=== PATIENT | male | born 1970 | race Caucasian/White ===

== ENCOUNTER 2020-05-26 | Emergency (ER) | payer BC ==
[~2020-05-26] MED LIST: DARVOCET-N 100100 MG OR; FLEXERIL10 MG PO; LORTAB5 PO; NAPROSYN500 MG PO; NEXIUM40 M1 OR; NO; ROBITUSSIN AC10 ML PO; TAM75CAP PO; ULTRAM ER300 MG OR; ULTRAM ER300 MG PO; ZOFRAN ODT4 MG OR
[2020-05-26 08:20] LABS: URINE BILIRUBIN - DIPSTICK NEGATIVE (NEGATIVE); URINE BLOOD DIPSTICK LARGE (NEGATIVE); URINE COLOR YELLOW; URINE GLUCOSE - DIPSTICK NEGATIVE (NEGATIVE); URINE KETONE NEGATIVE (NEGATIVE); URINE LEUK ESTERASE NEGATIVE (NEGATIVE); URINE PROTEIN - DIPSTICK NEGATIVE (NEG-TRACE); URINE SPECIFIC GRAVITY >=1.030; URINE UROBILINOGEN - DIPSTICK 0.2 E.U./dL (0.2)
[2020-05-26 08:22] LABS: URINE NITRITE - DIPSTICK NEGATIVE (Negative)
[2020-05-26 08:32] LABS: URINE RBC 25-50 RBC/hpf (0-5)
[2020-05-26 08:33] LABS: URINE WBC 0-2 WBC/hpf (0-5)
[2020-05-26] MEDS ORDERED: ZOFRAN4 M1 PO (08:51)
== END 2020-05-26 08:58 | disposition home or self-care (01) | DRG 179 ==
PROVIDERS: Family Medicine
DX: U07.1 COVID-19 (principal); R31.9 Hematuria, unspecified; F17.210 Nicotine dependence, cigarettes, uncomplicated

== ENCOUNTER 2024-03-19 05:34 | Emergency (ER) | payer SELFPAY ==
[~2024-03-19] VITALS: Ht 167.6 cm; Wt 79.0 kg
[~2024-03-19 05:34] MED LIST changes: +ZOFRAN4 M1 PO
[2024-03-19 05:49] VITALS: BP 138/81
[2024-03-19 06:00] VITALS: BP 156/83
[2024-03-19] MEDS ORDERED: ACETAMINOPHEN 500 MG TAB PO ONE (06:25)
[2024-03-19] MEDS ORDERED: TAM75CAP PO (06:58)
[2024-03-19 07:00] VITALS: BP 162/79
[2024-03-19 07:08] VITALS: BP 162/79
== END 2024-03-19 07:23 | disposition home or self-care (01) | DRG 195 ==
LOC: ED 05:34
DX: J10.1 Influenza due to other identified influenza virus with other respiratory manifestations (principal); F17.200 Nicotine dependence, unspecified, uncomplicated; Z20.822 Contact with and (suspected) exposure to COVID-19

== ENCOUNTER 2024-03-24 16:52 | Observation (INO) | payer SELFPAY ==
[~2024-03-24] VITALS: Ht 167.6 cm; Wt 83.4 kg
[2024-03-24] VITALS (21 sets, daily range): BP systolic 125–150; BP diastolic 65–119
[2024-03-24] MEDS ORDERED: predniSONE 20 MG/TAB PO ONE (17:05)
[2024-03-24] MEDS ORDERED: IPRATROPIUM-Albuterol 0.5MG-2.5MG/3 ML NEB ONE ×2 (17:05)
--- NOTE | 2024-03-24 17:05 | NUR ---
PATIENT TO ROOM 15 WITH TRIAGE NURSE
[2024-03-24 17:29] LABS: BASO% 0.3 % (0-3); EOS% 1.7 % (0-8); HEMATOCRIT 42.5 % (39.0-50.0); HEMOGLOBIN 14.2 g/dl (14.0-18.0); IMMATURE GRANULOCYTES 0.3 % (0.0-5.0); LYMPH% 14.2 % (15-41); MEAN CELL VOLUME 88.2 fL CALC (80.0-100.0); MEAN CORPUSCULAR HGB 29.5 pG CALC (26.0-32.0); MEAN CORPUSCULAR HGB CONC 33.4 g/dL CAL (32.0-36.0); MONO% 9.5 % (2-13); NEUT# 5.8 thou/uL (1.82-7.42); RED BLOOD COUNT 4.82 mill/uL (4.70-6.10); RED CELL DISTRI WIDTH 11.7 % (11.5-15.5)
--- NOTE | 2024-03-24 17:42 | NUR ---
NEB Tx COMPLETED
[2024-03-24 17:47] LABS: CREATININE 0.9 mg/dL (0.7-1.3); POTASSIUM 3.9 mmol/l (3.5-5.1); TOTAL PROTEIN 5.9 g/dL (6.3-8.2)
[2024-03-24 17:48] LABS: ALBUMIN 3.4 g/dL (3.2-5.0); BILIRUBIN, TOTAL 1.2 mg/dL (0.2-1.3)
--- NOTE | 2024-03-24 17:56 | NUR ---
Reassessment of patient completed. No distress noted.
[2024-03-24] MEDS ORDERED: methylPREDNISolone SODIUM SUCC 125 MG/2 ML SDV IV ONE (18:30)
[2024-03-24] MEDS ORDERED: AZITHROMYCIN 500 MG in SODIUM CHLORIDE 0.9% 500 ML IV ONE (18:30)
[2024-03-24] MEDS ORDERED: cefTRIAXone SODIUM 2 GM in SODIUM CHLORIDE 0.9% 100 ML IV ONE (18:30)
--- NOTE | 2024-03-24 19:00 | NUR ---
RECIEVED REPORT FROM NALLELY CARNEY. PT AWAITING FOR ADMISSION AT THIS TIME.
--- NOTE | 2024-03-24 19:09 | NUR ---
TRANSITION OF CARE REPORT TO RONDA CARNEY
--- NOTE | 2024-03-24 19:18 | NUR ---
PT MEDICATED PER MD ORDERS. PT UPDATED ON POC, AWAITING FOR ROOM ASSIGNMENT ON MS2 AT THIS TIME. PT VOICES UNDERSTANDING WITH NO FURTHER QUESTIONS. PT CALL LIGHT WITHIN REACH FAMILY AT BEDSIDE. ABX RUNNING. PT GIVEN A SNACK OF JELLOW AT THIS TIME.
--- NOTE | 2024-03-24 19:52 | NUR ---
PT UPDATED ON POC, PT WILL BE TRANSPORTED TO MS2 ROOM 268. PT VOICES UNDERSTADNING AND APPRECIATION OF CARE.
--- NOTE | 2024-03-24 20:16 | NUR ---
PT AWAITING FOR ADMISSION ORDERS AT THIS TIME.
--- NOTE | 2024-03-24 21:18 | NUR ---
GAVE PT REPORT TO SHEA ROMAN.
[2024-03-24] MEDS ORDERED: MAGNESIUM HYDROXIDE 30 ML UDC PO PRN (21:20)
[2024-03-24] MEDS ORDERED: ACETAMINOPHEN 325 MG/TAB PO PRN (21:20)
[2024-03-24] MEDS ORDERED: IPRATROPIUM-Albuterol 0.5MG-2.5MG/3 ML NEB PRN (21:25)
[2024-03-24] MEDS ORDERED: methylPREDNISolone Sod Succ 40 MG/ML SDV IV SCH (22:00)
--- NOTE | 2024-03-24 22:00 | NUR ---
PT TRANSPORTED TO VT 2 AT THIS TIME. PT IS ON TELE MONITOR. JESSIE VALDIVIA AT BEDSIDE.
--- NOTE | 2024-03-24 22:20 | NUR ---
PATIENT CAME FROM ER AT 2210. VARINDER IS A&0X4. FAMILY AT BEDSIDE. BEDSIDE ASSESSMENT COMPLETE. NO COMPLAINTS OF PAIN AT THIS TIME. PATIENT OBSERVED TO HAVE REDNESS TO RIGHT UPPER ARM 1 INCH IN DIAMETER GOING AROUND THE ARM. PATIENT STATED" THAT WAS BECAUSE SUM ONE LEFT A TOURNIQUET ON TOO LONG." CONSOLIDATION ACCOUNTANT NOTIFIED. O2 VIA NC AT 3L, UNLABORED RESP, BOWEL SOUNDS PRESENT IN ALL 4 QUADRENTS. PERIPHERAL PULSES STRONG AND EQUAL. BED AT LOWEST POSITIN.CALL LIGHT WITH IN REACH.
[2024-03-25 04:17] VITALS: BP 123/75
--- NOTE | 2024-03-25 04:51 | NUR ---
PATIENT OBSERVED TO BE IN BED RESTING. FAMILY AT BEDSIDE. O2 VIA NC AT 3L. NO VISUAL SIGNS OF DISTRESS. BED AT LOWEST POSITION. CALL LIGHT WITH IN REACH.
[2024-03-25 05:51] VITALS: BP 123/75
[2024-03-25 06:26] VITALS: BP 141/79
--- NOTE | 2024-03-25 07:23 | NUR ---
PT IS ALERT TIMES 4 AND CAN MAKE HIS NEEDS KNOWN. PT IS ON 3 LITERS OF O2 VIA NASAL CANNULA. PT HAS NO BM THIS MORNING AND IS VOIDING FINE. PT HAS NO C/O OF PAIN TYLENOL GIVEN FORM PRODUCTION SUPPORT DEVELOPER SHFIT IS EFECTIVE. PT IS RESTING IN BED IV SITE IS CLEAN AND DRY NO S/O INFECTION. PT AT BEDSIDE. PT CALL HO IS AT REACH NURSING WILL CONTIUE TO MONITOR.
[2024-03-25 08:09] LABS: BASO% 0.3 % (0-3); HEMATOCRIT 44.1 % (39.0-50.0); HEMOGLOBIN 14.9 g/dl (14.0-18.0); IMMATURE GRANULOCYTES 0.9 % (0.0-5.0); LYMPH% 6.2 % (15-41); MEAN CELL VOLUME 87.7 fL CALC (80.0-100.0); MEAN CORPUSCULAR HGB 29.6 pG CALC (26.0-32.0); MEAN CORPUSCULAR HGB CONC 33.8 g/dL CAL (32.0-36.0); MONO% 1.4 % (2-13); NEUT# 5.27 thou/uL (1.82-7.42); NEUT% 91.2 % (42-76); RED BLOOD COUNT 5.03 mill/uL (4.70-6.10); RED CELL DISTRI WIDTH 11.5 % (11.5-15.5)
[2024-03-25 08:36] LABS: ALBUMIN 3.6 g/dL (3.2-5.0); BILIRUBIN, TOTAL 0.9 mg/dL (0.2-1.3); CREATININE 0.9 mg/dL (0.7-1.3); MAGNESIUM 1.9 mg/dL (1.6-2.3); POTASSIUM 3.8 mmol/l (3.5-5.1); TOTAL PROTEIN 6.3 g/dL (6.3-8.2)
[2024-03-25] MEDS ORDERED: IPRATROPIUM-Albuterol 0.5MG-2.5MG/3 ML NEB SCH (11:00)
--- NOTE | 2024-03-25 12:05 | NUR ---
PT IS IN HIS ROOM SITTING UP IN HIS BED WARREN JHA IS AT BEDSIDE. PT COMPLAINING OF FEELING SHAKY. PT WAS EDUCATED ON THE DUO NEB BREATHING TREATMENT HAVING SOME SHAKY FEELING IS A SIDE EFFECT PT AND HIS VERBALLY UNDERSTOOD. PT WAS TOLD THAT THE SHAKY FEELING WILL RESIDE. PT IS EATING HIS LUNCH CALL [facility] IN REACH NURSING WILL CONTIUE TO MONITOR
[2024-03-25 14:40] VITALS: BP 130/71
--- NOTE | 2024-03-25 15:58 | NUR ---
PT RESTINGIN HIS BED WITH AT BEDSIDE. PT NON-PRODUCTIVE COUGH CONTINUES THROUGH THE SHIFT. PT REMAINS ON 3 LITERS OF 02. PT HAS NO C/O AT THIS TIME. CALL HO WITH IN REACH SAFETY MEASURES IN PLACE.
--- NOTE | 2024-03-25 16:32 | NUR ---
pt observed durng safety rounds with labored breathing RR IS AT SP02 93% R/A. PT HAS UNCONTROLABLE NON-PRODUCTIVE COUGH. PT WAS OFFERRED COUGH MEDICATION TO HELP WITH HIS COUGHING PT STATED HE DID NOT WANT ANY. PT RQUESTED TO BE PLACED BACK ONTO THE 02 ON 2 LITERS FOR COMFORT. PT STATED RTT TOLD HIM HE NO LONGER NEEDS THE 02 AND HAD HIM REMOVE IT. PT O2 WAS PLACED ON VIA NASAL CANNULA ON 2 LITERS SP02 IS NOW 96% RR DECREASED TO 16. PT STATES HE FEELS MUCH BETTER WITH THE O2 ON AT THIS TIME.
[2024-03-25 18:38] VITALS: BP 144/71
[2024-03-25 18:52] VITALS: BP 144/71
--- NOTE | 2024-03-25 19:30 | NUR ---
PATIENT OBSERVED IN ROOM RESTING IN BED AWAKE. FAMILY AT BEDSIDE. BEDSIDE ASSESSMENT COMPLETE. PATIENT OBSERVED TO HAVE REDNESS TO UPPER CHEST AND BACK WARM TO TOUCH. ASKED PATIENT IF HE WAS IN ANY PAIN OR DISCOMFOR. PATIENT STATED "I DONT KNOW" EDUCATED PATIENT ON PAIN REPORTING, AND TO LET US KNOW. ON ANY CHANGES. PATIENT UNDERSTANDS. O2 VIA NC AT 2L. NONPRODUCTIVE COUGH. UNLABORED RESP. NO COMPLAINTS OF PAIN AT THIS TIME. CRACKELS HEARD UPON AUSCULTATION. PATIENT WANTED A DUONEB, RT CALLED AND REQUESTED . BED AT LOWEST POSITION. CALL LIGHT WITH IN REACH.
[2024-03-25] MEDS ORDERED: methylPREDNISolone Sod Succ 40 MG/ML SDV IV SCH (21:00)
[2024-03-25] MEDS ORDERED: ENOXAPARIN SODIUM 40 MG/0.4 ML SYR SC SCH (21:00)
[2024-03-25] MEDS ORDERED: AZITHROMYCIN 500 MG in SODIUM CHLORIDE 0.9% 250 ML IV SCH (22:00)
[2024-03-25] MEDS ORDERED: AZITHROMYCIN 500 MG in SODIUM CHLORIDE 0.9% 500 ML IV SCH (22:00)
[2024-03-25] MEDS ORDERED: DiphenhydrAMINE HCL 50 MG/ML SDV ONE (23:06)
--- NOTE | 2024-03-25 23:45 | NUR ---
PATIENTS CALLED TO SAID HIS ARM WAS BURNING AT 2247. IV AZITHROMYCIN INFUSING. PATIENT OBSERVED TO BE RED AND FLUSHED. PATIENT STATED "I CANT BREATH" OBSERVED TO HAVE LABORED RESP. IV STOPPED AND DISCONNECTED. VITALS TAKEN, BP 123/71, PULSE 105, O2 86. RAPID CALLED AT 2248. RT IN ROOM GAVE DUONEB. EKG TAKEN. BUTTONHOLE MAKER HAND PROVIDER CALLED, ORDERS TAKEN, IV BENADRYL 20MG X1 DOSE ORDERD. STAT XRAY ORDERD. ALL CLEAR AT 2314.
--- NOTE | 2024-03-26 00:19 | NUR ---
PATIENT OBSERVED IN BED WITH NON REBREATHER MASK. RT AT BEDSIDE. PATIENT VITALS 140/68, PULSE 101, O2 90.
[2024-03-26 03:20] VITALS: BP 149/87
[2024-03-26 03:53] VITALS: BP 149/87
--- NOTE | 2024-03-26 04:57 | NUR ---
PATIENT OBSERVED TO BE ON RIGHT SIDE RESTING WITH EYES CLOSED. FAMILY AT BEDSIDE. 02 VIA NC AT 2L. NO VISUAL SIGNS OF DISTRESS, BED AT LOWEST POSITION. CALL LIGHT WITH IN REACH.
[2024-03-26 06:13] LABS: BASO% 0.3 % (0-3); LYMPH% 3.4 % (15-41); MEAN CELL VOLUME 89.2 fL CALC (80.0-100.0); MEAN CORPUSCULAR HGB 30.3 pG CALC (26.0-32.0); MEAN CORPUSCULAR HGB CONC 33.9 g/dL CAL (32.0-36.0); MONO% 5.1 % (2-13); NEUT# 11.64 thou/uL (1.82-7.42); NEUT% 90.2 % (42-76); RED BLOOD COUNT 4.26 mill/uL (4.70-6.10)
[2024-03-26 06:19] LABS: ALBUMIN 3.2 g/dL (3.2-5.0); CREATININE 0.9 mg/dL (0.7-1.3); MAGNESIUM 2.1 mg/dL (1.6-2.3); POTASSIUM 3.8 mmol/l (3.5-5.1); TOTAL PROTEIN 5.7 g/dL (6.3-8.2)
[2024-03-26 06:20] LABS: BILIRUBIN, TOTAL 0.4 mg/dL (0.2-1.3)
[2024-03-26 06:21] LABS: HEMOGLOBIN 12.9 g/dl (14.0-18.0)
[2024-03-26 06:56] VITALS: BP 147/87
--- NOTE | 2024-03-26 07:58 | NUR ---
REPORT RECIEVED. PT RESTING IN SEMI FOWLERS POSITION. A/OX4. RR UNLABORED ON 2L NC. o2 100% ON 2L NC. DISCUSSED WITH PT THAT WILL ATTEMPT TO WEAN SINCE O2 100%, VERBALIZED UNDERSTANDING. TELE MONITORING IN PLACE. #20 RAC PATENT. SKIN INTACT. PT DENIES OF ANY COMPLAINTS AT THIS TIME. SAFETY PRECAUTIONS IN PLACE.
--- NOTE | 2024-03-26 09:00 | NUR ---
RN INFORMED BY CM TO ATTMEMPT TO WEAN O2 TO DETERMINE NEED FOR HOME O2. RN PRESENTED AT BEDSIDE TOT START WEANING. STATES " WHAT ARE YOU DOING? WHY ARE YOU TURNING IT OFF?" RN EDUCATED PT AND OF 100% ON 2L NC, SINCE NOT USING O2 AT HOME, WILL ATTEMPT TO GET BACK TO HIS BASELINE AND OFF O2." STATES " HE WAS SOB LAST NIGHT, HE NEEDS IT." AGAIN EDUCATED ON O2 READING AND NEED TO ATLEAST ATTEMPT ROOM AIR ONCE AGAING AND THE PROCESS OF GETTING O2 IF NEEDED WHEN GOING HOME. STATES "EVERYONE IS CONCERNED ABOUT HIS NOT HAVING ISSURANCE NOT BEING ABLE TO CARE FOR THINGS. THIS IS THE 3RD TIME SOMEONE SAID SOMETHING ABOUT ISSUARNCE. THEY ARE TRYING TO KICK HIM OUT AND HES NOT GOING HOME AFTER LAST NIGHT." RN ONCE AGAIN EDUCATED AND PT, DICUSSED THAT MD WILL TALK TO THEM FURTHER.
[2024-03-26] MEDS ORDERED: DOXYCYCLINE100 MG PO (10:12)
[2024-03-26] MEDS ORDERED: PREDNISONE10 MG PO (10:14)
[2024-03-26] MEDS ORDERED: VENTOLIN HFA108 MCG IN (10:15)
[2024-03-26 10:30] VITALS: BP 139/84
--- NOTE | 2024-03-26 12:20 | NUR ---
PT EDUCATED ON DC INSTRUCTIONS AND NEW MEDS. P/U AT [facility]. IV REMOVED WITH CATH INTACT. TELE REMOVED, ED INFORMED.
--- NOTE | 2024-03-26 12:55 | NUR ---
PT DC HOME WITH ALL PERSONAL BELONINGS AND DC PAPERWORK VIA WHEELCHAIR. AT SIDE.
--- NOTE | 2024-03-29 13:19 | NUR ---
Discharge follow up call completed 03/29/24. states patient is not doing well. Patient is having difficulty breathing per . Patient is taking medication as directed. Patient has a follow up appointment on 04/08/24. states she desires to speak to someone regarding her husbands hospital experience.
== END 2024-03-26 12:55 | disposition home or self-care (01) | DRG 192 ==
LOC: ED 16:52 → ED-I 17:53 → ED 18:46 → MS2 18:47
PROVIDERS: Family Medicine; Nurse Practitioner Family; ADMIT Internal Medicine; ATTEND Internal Medicine
DX: J44.1 Chronic obstructive pulmonary disease with (acute) exacerbation (principal); J44.0 Chronic obstructive pulmonary disease with (acute) lower respiratory infection; J20.9 Acute bronchitis, unspecified; R06.02 Shortness of breath; R23.2 Flushing; T36.3X5A Adverse effect of macrolides, initial encounter; Z77.22 Contact with and (suspected) exposure to environmental tobacco smoke (acute) (chronic); Z87.891 Personal history of nicotine dependence
CPT/HCPCS: G0378; J0456; J0696; J1200; J1650